=== PATIENT | male | born 1970 | race Caucasian/White ===

== ENCOUNTER 2017-11-25 19:52 | Inpatient (IN) | payer OTHER ==
[2017-11-25] MEDS: SOD CHLORIDE 0.9% 1,000 ML IV ×2 (20:32→22:18)
[2017-11-25] MEDS: ONDANSETRON 4 MG INJ IV ×3 (20:32→23:58)
[2017-11-25] MEDS: HYDROmorphONE 1 MG/ML SYG IV ×2 (20:32→22:18)
[2017-11-25] MEDS: LORAZEPAM 2 MG INJ IV (20:33)
[2017-11-25 20:44] LABS: ADD MAN DIFF? NO
[2017-11-25 20:47] LABS: WHITE BLOOD COUNT 20.4 10^3/ul (4.8-10.8)
[2017-11-25 20:47] LABS: ABNORMAL IP MESSAGE 1; BASOPHIL # 0.1 10^3/ul (0.0-0.1); BASOPHILS % 0.7 % (0.0-2.0); EOSINOPHILS # 0.3 10^3/ul (0.0-0.5); EOSINOPHILS % 1.6 % (0.0-7.0); HEMATOCRIT 48.1 % (42.0-52.0); HEMOGLOBIN 17.2 g/dl (14.0-18.0); LYMPHOCYTES # 3.5 10^3/ul (0.8-2.9); LYMPHOCYTES % 17.1 % (15.0-51.0); MEAN CORPUSCULAR HEMOGLOBIN 30.9 pg (29.0-33.0); MEAN CORPUSCULAR HGB CONC 35.8 g/dl (32.0-37.0); MEAN CORPUSCULAR VOLUME 86.4 fl (82.0-101.0); MEAN PLATELET VOLUME 11.6 fl (7.4-10.4); MONOCYTES % 9.9 % (0.0-11.0); NEUTROPHIL # 14.3 10^3/ul (1.6-7.5); PLATELET COUNT 341 10^3/UL (140-415); POSITIVE DIFF @See below; RED BLOOD COUNT 5.57 10^6/ul (4.70-6.10); RED CELL DISTRIBUTION WIDTH 12.4 % (11.5-14.5)
[2017-11-25 21:00] LABS: INR 0.97
[2017-11-25 21:01] LABS: PARTIAL THROMBOPLASTIN TIME 21.2 Sec (25.0-35.0)
[2017-11-25 21:03] LABS: ALANINE AMINOTRANSFERASE 216 IU/L (13-69); ALBUMIN 3.5 g/dl (3.3-4.9); ALBUMIN/GLOBULIN RATIO 1.29; ALKALINE PHOSPHATASE 130 IU/L (42-121); ANION GAP 15 (8-16); ASPARTATE AMINO TRANSFERASE 265 IU/L (15-46); BILIRUBIN,INDIRECT 0.7 mg/dl (0-1.1); BILIRUBIN,TOTAL 1.7 mg/dl (0.2-1.3); BLOOD UREA NITROGEN 17 mg/dl (7-20); CALCIUM 8.4 mg/dl (8.4-10.2); CARBON DIOXIDE 24 mmol/L (21-31); CHLORIDE 101 mmol/L (97-110); CREATININE 0.84 mg/dl (0.61-1.24); GLUCOSE 379 mg/dl (70-220); SODIUM 136 mmol/L (135-144); TOTAL PROTEIN 6.2 g/dl (6.1-8.1)
[2017-11-25 22:03] LABS: LIPASE 41442 U/L (23-300)
[2017-11-25] MEDS ORDERED: PIPER-TAZO 3.375 GM IV (PMX) 100 ML (22:14)
[2017-11-25] MEDS: PIPER-TAZO 3.375 GM IV (PMX) 100 ML IVPB (22:18)
[2017-11-25] MEDS ORDERED: ACETAMINOPHEN 325 MG TAB PO (22:30)
[2017-11-26] MEDS: LORAZEPAM 2 MG INJ IV (01:56)
[2017-11-26] MEDS: METOCLOPRAMIDE 10 MG INJ IV (01:57)
[2017-11-26] MEDS ORDERED: NACL 0.9% 3 ML SYG IV (03:30)
[2017-11-26] MEDS ORDERED: ALBUTEROL/IPRATROPIUM (NEB) 3 ML AMP HHN (03:30)
[2017-11-26] MEDS: DEXTROSE 5%-0.45% NACL 1,000 ML IV ×3 (04:15→23:44)
[2017-11-26] MEDS: INSULIN ASPART [NOVOLOG] 3 ML PEN SC ×6 (05:00→21:38)
[2017-11-26] MEDS: ONDANSETRON 4 MG INJ IV ×3 (05:32→21:34)
[2017-11-26 06:23] LABS: ADD MAN DIFF? NO
[2017-11-26 06:30] LABS: WHITE BLOOD COUNT 21.9 10^3/ul (4.8-10.8)
[2017-11-26 06:30] LABS: ABNORMAL IP MESSAGE 1; BASOPHILS % 0.2 % (0.0-2.0); HEMATOCRIT 43.6 % (42.0-52.0); HEMOGLOBIN 15.6 g/dl (14.0-18.0); LYMPHOCYTES # 0.5 10^3/ul (0.8-2.9); LYMPHOCYTES % 2.2 % (15.0-51.0); MEAN CORPUSCULAR HEMOGLOBIN 31.5 pg (29.0-33.0); MEAN CORPUSCULAR HGB CONC 35.8 g/dl (32.0-37.0); MEAN CORPUSCULAR VOLUME 88.1 fl (82.0-101.0); MEAN PLATELET VOLUME 11.8 fl (7.4-10.4); MONOCYTE # 0.9 10^3/ul (0.3-0.9); MONOCYTES % 4.2 % (0.0-11.0); NEUTROPHIL # 20.3 10^3/ul (1.6-7.5); NEUTROPHILS % 92.7 % (39.0-77.0); PLATELET COUNT 224 10^3/UL (140-415); POSITIVE DIFF @See below; RED BLOOD COUNT 4.95 10^6/ul (4.70-6.10)
[2017-11-26 06:54] LABS: CHOL/HDL RATIO 4.9 RATIO; CHOLESTEROL 173 mg/dl (100-200); HDL CHOLESTEROL 35 mg/dl (27-67); LDL CHOLESTEROL,CALCULATED 120 mg/dl; MAGNESIUM 1.7 mg/dl (1.7-2.5); TRIGLYCERIDES 92 mg/dl (0-149)
[2017-11-26 06:54] LABS: PHOSPHORUS 3.9 mg/dl (2.5-4.9)
[2017-11-26 07:21] LABS: HEMOGLOBIN A1C 8.4 % (0-5.9)
[2017-11-26] MEDS: HYDROmorphONE 0.5 MG/0.5 ML SYG IV ×4 (08:01→21:40)
[2017-11-26] MEDS: MEROPENEM 1 GM/50ML(PMX) 50 ML IVPB ×3 (08:52→23:42)
[2017-11-26] MEDS: FAMOTIDINE 20 MG INJ IV ×2 (08:53→21:35)
[2017-11-26] MEDS: INSULIN GLARGINE [LANtus] 3 ML PEN SC ×2 (08:56→14:34)
[2017-11-26] MEDS ORDERED: GLUCOSE GEL 15 GRAM TUBE PO ×2 (15:30)
[2017-11-26] MEDS ORDERED: GLUCOSE GEL 15 GRAM TUBE BUCCAL (15:30)
[2017-11-26] MEDS ORDERED: DEXTROSE 50% 50 ML SYRINGE IV ×2 (15:30)
[2017-11-26] MEDS ORDERED: GLUCAGON 1 MG INJ IM (15:30)
[2017-11-26] MEDS: metroNIDAZOLE 500 MG/NS (PMX) 100 ML IVPB ×2 (16:11→22:30)
[2017-11-26] MEDS: CIPROFLOXACIN 400MG/D5W 200 ML IVPB ×2 (17:12→21:29)
[2017-11-26] MEDS ORDERED: INSULIN ASPART [NOVOLOG] 3 ML PEN SC (17:55)
[2017-11-27] MEDS: LORAZEPAM 2 MG INJ IV (00:52)
[2017-11-27] MEDS: INSULIN ASPART [NOVOLOG] 3 ML PEN SC ×7 (01:03→23:48)
[2017-11-27] MEDS: ACCU-CHEK XX (01:05)
[2017-11-27] MEDS ORDERED: ACCU-CHEK XX (02:00)
[2017-11-27] MEDS: MEROPENEM 1 GM/50ML(PMX) 50 ML IVPB ×3 (05:29→22:54)
[2017-11-27] MEDS: metroNIDAZOLE 500 MG/NS (PMX) 100 ML IVPB ×3 (05:55→21:49)
[2017-11-27 06:27] LABS: ADD MAN DIFF? NO
[2017-11-27 06:31] LABS: WHITE BLOOD COUNT 26.1 10^3/ul (4.8-10.8)
[2017-11-27 06:31] LABS: ABNORMAL IP MESSAGE 1; BASOPHIL # 0.1 10^3/ul (0.0-0.1); BASOPHILS % 0.3 % (0.0-2.0); HEMATOCRIT 41.5 % (42.0-52.0); HEMOGLOBIN 14.4 g/dl (14.0-18.0); LYMPHOCYTES # 0.9 10^3/ul (0.8-2.9); LYMPHOCYTES % 3.5 % (15.0-51.0); MEAN CORPUSCULAR HGB CONC 34.7 g/dl (32.0-37.0); MEAN CORPUSCULAR VOLUME 89.2 fl (82.0-101.0); MEAN PLATELET VOLUME 11.5 fl (7.4-10.4); MONOCYTE # 2.7 10^3/ul (0.3-0.9); MONOCYTES % 10.3 % (0.0-11.0); NEUTROPHIL # 22.2 10^3/ul (1.6-7.5); NEUTROPHILS % 85.2 % (39.0-77.0); PLATELET COUNT 207 10^3/UL (140-415); POSITIVE DIFF @See below; RED BLOOD COUNT 4.65 10^6/ul (4.70-6.10)
[2017-11-27 07:04] LABS: ALANINE AMINOTRANSFERASE 114 IU/L (13-69); ALBUMIN 2.7 g/dl (3.3-4.9); ALKALINE PHOSPHATASE 82 IU/L (42-121); ASPARTATE AMINO TRANSFERASE 38 IU/L (15-46); BILIRUBIN,INDIRECT 0.7 mg/dl (0-1.1); BILIRUBIN,TOTAL 0.7 mg/dl (0.2-1.3); TOTAL PROTEIN 5.4 g/dl (6.1-8.1)
[2017-11-27 07:05] LABS: LIPASE 948 U/L (23-300)
[2017-11-27 07:12] LABS: ANION GAP 10 (8-16); BLOOD UREA NITROGEN 13 mg/dl (7-20); CALCIUM 7.4 mg/dl (8.4-10.2); CARBON DIOXIDE 26 mmol/L (21-31); CHLORIDE 103 mmol/L (97-110); CREATININE 0.71 mg/dl (0.61-1.24); GLUCOSE 247 mg/dl (70-220); PHOSPHORUS 1.7 mg/dl (2.5-4.9); POTASSIUM 3.4 mmol/L (3.5-5.1); SODIUM 136 mmol/L (135-144)
[2017-11-27] MEDS: HYDROmorphONE 0.5 MG/0.5 ML SYG IV ×4 (09:40→23:43)
[2017-11-27] MEDS: ONDANSETRON 4 MG INJ IV ×3 (09:40→21:49)
[2017-11-27] MEDS: FAMOTIDINE 20 MG INJ IV ×2 (09:43→20:47)
[2017-11-27] MEDS: CIPROFLOXACIN 400MG/D5W 200 ML IVPB ×2 (09:45→20:46)
[2017-11-27] MEDS: INSULIN GLARGINE [LANtus] 3 ML PEN SC (09:45)
[2017-11-27] MEDS: POTASSIUM CHLORIDE 50 ML IVPB ×2 (11:11→15:15)
[2017-11-27] MEDS: SOD CHLORIDE 0.9% 1,000 ML IV (11:12)
[2017-11-27] MEDS: MAGNESIUM SULFATE 2 GM/50 ML 50 ML IVPB (12:37)
[2017-11-27] MEDS: DEXTROSE 5%-0.45% NACL 1,000 ML IV (21:48)
[2017-11-28] MEDS: ACCU-CHEK XX (01:54)
[2017-11-28] MEDS: morphine 2 MG INJ IV (02:50)
[2017-11-28] MEDS: metroNIDAZOLE 500 MG/NS (PMX) 100 ML IVPB ×3 (05:22→21:55)
[2017-11-28] MEDS: INSULIN ASPART [NOVOLOG] 3 ML PEN SC ×7 (05:26→20:41)
[2017-11-28] MEDS: HYDROmorphONE 0.5 MG/0.5 ML SYG IV ×4 (05:31→23:07)
[2017-11-28 06:10] LABS: LIPASE 96 U/L (23-300)
[2017-11-28] MEDS: MEROPENEM 1 GM/50ML(PMX) 50 ML IVPB ×3 (06:40→23:05)
[2017-11-28] MEDS: CIPROFLOXACIN 400MG/D5W 200 ML IVPB ×2 (09:30→20:36)
[2017-11-28] MEDS: INSULIN GLARGINE [LANtus] 3 ML PEN SC (09:32)
[2017-11-28] MEDS: FAMOTIDINE 20 MG INJ IV ×2 (10:14→20:35)
[2017-11-28] MEDS: SOD CHLORIDE 0.9% 1,000 ML IV (12:57)
[2017-11-28] MEDS: ONDANSETRON 4 MG INJ IV ×2 (17:22→23:04)
[2017-11-28] MEDS: LORAZEPAM 2 MG INJ IV (20:49)
[2017-11-29] MEDS: ACCU-CHEK XX (01:33)
[2017-11-29] MEDS: LORAZEPAM 2 MG INJ IV (02:53)
[2017-11-29] MEDS: metroNIDAZOLE 500 MG/NS (PMX) 100 ML IVPB ×3 (05:30→22:40)
[2017-11-29 05:42] LABS: WHITE BLOOD COUNT 18.6 10^3/ul (4.8-10.8)
[2017-11-29 05:42] LABS: ABNORMAL IP MESSAGE 1; ADD MAN DIFF? NO; BASOPHIL # 0.1 10^3/ul (0.0-0.1); BASOPHILS % 0.3 % (0.0-2.0); EOSINOPHILS # 0.1 10^3/ul (0.0-0.5); EOSINOPHILS % 0.6 % (0.0-7.0); HEMATOCRIT 38.5 % (42.0-52.0); HEMOGLOBIN 13.4 g/dl (14.0-18.0); LYMPHOCYTES # 1.1 10^3/ul (0.8-2.9); LYMPHOCYTES % 5.9 % (15.0-51.0); MEAN CORPUSCULAR HEMOGLOBIN 30.9 pg (29.0-33.0); MEAN CORPUSCULAR HGB CONC 34.8 g/dl (32.0-37.0); MEAN CORPUSCULAR VOLUME 88.7 fl (82.0-101.0); MEAN PLATELET VOLUME 11.1 fl (7.4-10.4); MONOCYTE # 1.9 10^3/ul (0.3-0.9); MONOCYTES % 9.9 % (0.0-11.0); NEUTROPHIL # 15.4 10^3/ul (1.6-7.5); NEUTROPHILS % 82.7 % (39.0-77.0); PLATELET COUNT 216 10^3/UL (140-415); POSITIVE DIFF @See below; RED BLOOD COUNT 4.34 10^6/ul (4.70-6.10); RED CELL DISTRIBUTION WIDTH 12.4 % (11.5-14.5)
[2017-11-29] MEDS: MEROPENEM 1 GM/50ML(PMX) 50 ML IVPB (06:40)
[2017-11-29] MEDS: CIPROFLOXACIN 400MG/D5W 200 ML IVPB ×2 (09:08→20:53)
[2017-11-29] MEDS: INSULIN ASPART [NOVOLOG] 3 ML PEN SC ×7 (09:10→20:58)
[2017-11-29] MEDS: INSULIN GLARGINE [LANtus] 3 ML PEN SC (09:11)
[2017-11-29] MEDS: SOD CHLORIDE 0.9% 1,000 ML IV (09:11)
[2017-11-29] MEDS: ALPRAZOLAM 0.5 MG TAB PO (09:27)
[2017-11-29] MEDS ORDERED: HYDROCODONE/APAP (5/325) TAB PO (09:30)
[2017-11-29] MEDS: NA PHOSPHATE/BIPHOS 133 ML ENEMA PR (11:00)
[2017-11-29] MEDS: HYDROCODONE/APAP (5/325) TAB PO ×3 (12:03→21:09)
[2017-11-29] MEDS ORDERED: morphine LIQ (10 MG/5 ML) CUP PO (17:00)
[2017-11-29] MEDS: MAGNESIUM HYDROXIDE 30ML CUP PO (17:59)
[2017-11-29] MEDS: FAMOTIDINE 20 MG TAB PO (20:52)
[2017-11-29] MEDS: DOCUSATE SODIUM 100 MG CAP PO (20:52)
[2017-11-29] MEDS: ONDANSETRON 4 MG INJ IV (23:43)
[2017-11-30] MEDS: ACCU-CHEK XX (02:00)
[2017-11-30 05:08] LABS: ADD MAN DIFF? NO
[2017-11-30] MEDS: SOD CHLORIDE 0.9% 1,000 ML IV (05:08)
[2017-11-30 05:17] LABS: WHITE BLOOD COUNT 14.5 10^3/ul (4.8-10.8)
[2017-11-30 05:17] LABS: ABNORMAL IP MESSAGE 1; BASOPHIL # 0.1 10^3/ul (0.0-0.1); BASOPHILS % 0.4 % (0.0-2.0); EOSINOPHILS # 0.4 10^3/ul (0.0-0.5); EOSINOPHILS % 2.5 % (0.0-7.0); HEMATOCRIT 37.5 % (42.0-52.0); LYMPHOCYTES # 0.9 10^3/ul (0.8-2.9); LYMPHOCYTES % 6.5 % (15.0-51.0); MEAN CORPUSCULAR HEMOGLOBIN 30.7 pg (29.0-33.0); MEAN CORPUSCULAR HGB CONC 34.7 g/dl (32.0-37.0); MEAN CORPUSCULAR VOLUME 88.7 fl (82.0-101.0); MEAN PLATELET VOLUME 10.6 fl (7.4-10.4); MONOCYTE # 1.7 10^3/ul (0.3-0.9); MONOCYTES % 11.8 % (0.0-11.0); NEUTROPHIL # 11.4 10^3/ul (1.6-7.5); NEUTROPHILS % 78.1 % (39.0-77.0); PLATELET COUNT 244 10^3/UL (140-415); POSITIVE DIFF @See below; RED BLOOD COUNT 4.23 10^6/ul (4.70-6.10); RED CELL DISTRIBUTION WIDTH 12.1 % (11.5-14.5)
[2017-11-30] MEDS: metroNIDAZOLE 500 MG/NS (PMX) 100 ML IVPB ×2 (06:08→13:12)
[2017-11-30] MEDS: POLYETHYLENE GLYCOL 17 GM PACKET PO (06:12)
[2017-11-30] MEDS: INSULIN ASPART [NOVOLOG] 3 ML PEN SC ×4 (09:05→13:05)
[2017-11-30] MEDS: DOCUSATE SODIUM 100 MG CAP PO (09:07)
[2017-11-30] MEDS: CIPROFLOXACIN 400MG/D5W 200 ML IVPB (09:07)
[2017-11-30] MEDS: INSULIN GLARGINE [LANtus] 3 ML PEN SC (09:07)
[2017-11-30] MEDS: ONDANSETRON 4 MG INJ IV (09:21)
[2017-11-30] MEDS: HYDROCODONE/APAP (5/325) TAB PO ×2 (09:21→13:19)
[2017-11-30] MEDS: LACTULOSE 30ML CUP PO (14:32)
== END 2017-11-30 14:58 | disposition home or self-care (01) | DRG 440 ==
LOC: MS1 22:18 → E/R 19:52
DX: K85.10 Biliary acute pancreatitis without necrosis or infection (principal); K76.0 Fatty (change of) liver, not elsewhere classified; K80.50 Calculus of bile duct without cholangitis or cholecystitis without obstruction; E11.9 Type 2 diabetes mellitus without complications; E66.9 Obesity, unspecified; D72.829 Elevated white blood cell count, unspecified; R73.9 Hyperglycemia, unspecified; Z68.33 Body mass index [BMI] 33.0-33.9, adult; K59.00 Constipation, unspecified; F41.9 Anxiety disorder, unspecified; G47.00 Insomnia, unspecified
CPT/HCPCS: 36415; 74176; 74181; 76705; 80048; 80053; 80061; 80076; 82962; 83036; 83690; 83735; 84100; 85025; 85610; 85730; 87040; 87086; 96374; 96375; 96376; 99285-25

== ENCOUNTER 2018-02-19 00:36 | Emergency (ER) | payer OTHER ==
[2018-02-19] MEDS ORDERED: ONDANSETRON 4 MG INJ IV (04:30)
[2018-02-19] MEDS: DIPHTH/TET/ACEL PERTUSS (ADULT) 0.5 ML VIAL IM* (04:47)
[2018-02-19] MEDS: HYDROCODONE/APAP (5/325) TAB PO ×2 (04:47→06:21)
[2018-02-19] MEDS: ONDANSETRON (ODT) 4 MG TAB ODT (04:48)
[2018-02-19] MEDS: OXYMETAZOLINE 0.05% 15 ML NAS SPRAY NASAL (06:31)
== END 2018-02-19 06:40 | disposition home or self-care (01) ==
LOC: FTE 00:36
DX: S02.2XXA Fracture of nasal bones, initial encounter for closed fracture (principal); X99.0XXA Assault by sharp glass, initial encounter; Y92.9 Unspecified place or not applicable; Z23 Encounter for immunization; Z79.84 Long term (current) use of oral hypoglycemic drugs
CPT/HCPCS: 70486; 90471; 90715; 99284-25

== ENCOUNTER 2019-04-01 11:07 | Inpatient (IN) | payer OTHER ==
[2019-04-01 11:25] LABS: ADD MAN DIFF? NO
[2019-04-01 11:32] LABS: BASOPHIL # 0.1 10^3/ul (0.0-0.1); BASOPHILS % 0.8 % (0.0-2.0); EOSINOPHILS # 0.4 10^3/ul (0.0-0.5); EOSINOPHILS % 3.4 % (0.0-7.0); HEMATOCRIT 44.9 % (42.0-52.0); HEMOGLOBIN 15.8 g/dl (14.0-18.0); LYMPHOCYTES # 3.4 10^3/ul (0.8-2.9); LYMPHOCYTES % 30.4 % (15.0-51.0); MEAN CORPUSCULAR HEMOGLOBIN 31.1 pg (29.0-33.0); MEAN CORPUSCULAR HGB CONC 35.2 g/dl (32.0-37.0); MEAN CORPUSCULAR VOLUME 88.4 fl (82.0-101.0); MEAN PLATELET VOLUME 11.5 fl (7.4-10.4); MONOCYTE # 1.5 10^3/ul (0.3-0.9); MONOCYTES % 13.4 % (0.0-11.0); NEUTROPHIL # 5.8 10^3/ul (1.6-7.5); NEUTROPHILS % 51.7 % (39.0-77.0); PLATELET COUNT 275 10^3/UL (140-415); RED BLOOD COUNT 5.08 10^6/ul (4.70-6.10); RED CELL DISTRIBUTION WIDTH 12.2 % (11.5-14.5)
[2019-04-01 11:32] LABS: WHITE BLOOD COUNT 11.2 10^3/ul (4.8-10.8)
[2019-04-01] MEDS: KETOROLAC 15 MG INJ IV (11:48)
[2019-04-01 12:01] LABS: ALANINE AMINOTRANSFERASE 76 IU/L (13-69); ALBUMIN 3.6 g/dl (3.3-4.9); ALBUMIN/GLOBULIN RATIO 1.05; ALKALINE PHOSPHATASE 98 IU/L (42-121); ANION GAP 9 (5-13); ASPARTATE AMINO TRANSFERASE 57 IU/L (15-46); BILIRUBIN,INDIRECT 0.9 mg/dl (0-1.1); BILIRUBIN,TOTAL 0.9 mg/dl (0.2-1.3); BLOOD UREA NITROGEN 9 mg/dl (7-20); CALCIUM 8.7 mg/dl (8.4-10.2); CARBON DIOXIDE 26 mmol/L (21-31); CHLORIDE 104 mmol/L (97-110); CREATININE 0.71 mg/dl (0.61-1.24); Estimated GFR > 60 mL/min (>60); GLUCOSE 233 mg/dl (70-220); SODIUM 139 mmol/L (135-144)
[2019-04-01 12:12] LABS: B-TYPE NATRIURETIC PEPTIDE 162 PG/ML (0-125)
[2019-04-01 12:35] LABS: TROPONIN-I 0.681 ng/ml (0.000-0.120)
[2019-04-01] MEDS ORDERED: NITROGLYCERIN (SL) 0.4 MG TAB (12:38)
[2019-04-01] MEDS ORDERED: HEPARIN 25000 UNITS/250 ML 250 ML IV (12:38)
[2019-04-01] MEDS ORDERED: HEPARIN 1000 UNITS/ML 10 ML INJ ×2 (12:41→13:49)
[2019-04-01] MEDS: HEPARIN 25000 UNITS/250 ML 250 ML IV (12:47)
[2019-04-01] MEDS: NITROGLYCERIN (SL) 0.4 MG TAB SL ×3 (12:48→13:35)
[2019-04-01] MEDS: HEPARIN 1000 UNITS/ML 10 ML INJ IV (13:18)
[2019-04-01] MEDS: ATORVASTATIN 80 MG TAB PO ×2 (13:24→20:29)
[2019-04-01 13:34] LABS: INR 0.88; PARTIAL THROMBOPLASTIN TIME 22.8 Sec (23.0-35.0); PT RATIO 0.9
[2019-04-01] MEDS: ONDANSETRON 4 MG INJ IV (13:36)
[2019-04-01] MEDS: morphine 4 MG/ML VIAL IV (13:36)
[2019-04-01] MEDS ORDERED: MIDAZOLAM 1 MG/ML 2 ML INJ (13:49)
[2019-04-01] MEDS ORDERED: IODIXANOL LOCM 100 ML BTL (13:49)
[2019-04-01] MEDS ORDERED: FENTAnyl 50 MCG/ML VIAL (13:49)
[2019-04-01] MEDS ORDERED: LIDOCAINE 1% (MDV) 20 ML INJ (13:49)
[2019-04-01] MEDS ORDERED: NITROGLYCERIN (IC) 100 MCG/ML INJ ×2 (13:50→14:29)
[2019-04-01] MEDS ORDERED: VERAPAMIL 5 MG INJ ×2 (13:50→14:19)
[2019-04-01] MEDS ORDERED: NACL 0.9% 3 ML SYG IV (14:00)
[2019-04-01] MEDS ORDERED: ONDANSETRON 4 MG INJ IV (14:00)
[2019-04-01] MEDS ORDERED: ACETAMINOPHEN 325 MG TAB PO ×2 (14:00→15:30)
[2019-04-01] MEDS ORDERED: HYDROCODONE/APAP (5/325) TAB PO (14:00)
[2019-04-01] MEDS ORDERED: TICAGRELOR 90 MG TABLET (14:12)
[2019-04-01] MEDS ORDERED: DEXTROSE 50% 50 ML SYRINGE IV ×2 (14:30)
[2019-04-01] MEDS ORDERED: GLUCOSE GEL 15 GRAM TUBE BUCCAL (14:30)
[2019-04-01] MEDS ORDERED: GLUCOSE GEL 15 GRAM TUBE PO ×2 (14:30)
[2019-04-01] MEDS ORDERED: GLUCAGON 1 MG INJ IM (14:30)
[2019-04-01] MEDS ORDERED: morphine 2 MG INJ IV (15:30)
[2019-04-01] MEDS ORDERED: OXYCODONE/ACETAMINOPHEN (5/325) TAB PO ×2 (15:30)
[2019-04-01] MEDS: SOD CHLORIDE 0.9% 1,000 ML IV (16:07)
[2019-04-01] MEDS: BIVALIRUDIN 250 MG in SOD CHLORIDE 0.9% 500 ML IV (16:11)
[2019-04-01] MEDS: INSULIN ASPART [NOVOLOG] 3 ML PEN SC ×2 (17:35→20:44)
[2019-04-01 19:34] LABS: CREATINE KINASE 2784 IU/L (23-200)
[2019-04-01 19:39] LABS: CK INDEX 3.8
[2019-04-01] MEDS: TICAGRELOR 90 MG TABLET PO (20:43)
[2019-04-01] MEDS: DOCUSATE SODIUM 100 MG CAP PO (20:45)
[2019-04-02] MEDS: ACCU-CHEK XX (01:40)
[2019-04-02] MEDS: morphine 2 MG INJ IV (03:00)
[2019-04-02 05:49] LABS: ADD MAN DIFF? NO
[2019-04-02 06:15] LABS: ABNORMAL IP MESSAGE 1; BASOPHIL # 0.1 10^3/ul (0.0-0.1); BASOPHILS % 0.4 % (0.0-2.0); EOSINOPHILS # 0.2 10^3/ul (0.0-0.5); EOSINOPHILS % 1.2 % (0.0-7.0); HEMOGLOBIN 13.6 g/dl (14.0-18.0); LYMPHOCYTES # 1.2 10^3/ul (0.8-2.9); LYMPHOCYTES % 9.8 % (15.0-51.0); MEAN CORPUSCULAR HEMOGLOBIN 30.8 pg (29.0-33.0); MEAN CORPUSCULAR HGB CONC 34.9 g/dl (32.0-37.0); MEAN CORPUSCULAR VOLUME 88.4 fl (82.0-101.0); MEAN PLATELET VOLUME 12.1 fl (7.4-10.4); MONOCYTE # 1.6 10^3/ul (0.3-0.9); MONOCYTES % 12.5 % (0.0-11.0); NEUTROPHIL # 9.6 10^3/ul (1.6-7.5); NEUTROPHILS % 75.6 % (39.0-77.0); PLATELET COUNT 204 10^3/UL (140-415); POSITIVE DIFF @See below; RED BLOOD COUNT 4.41 10^6/ul (4.70-6.10); RED CELL DISTRIBUTION WIDTH 12.5 % (11.5-14.5)
[2019-04-02 06:15] LABS: WHITE BLOOD COUNT 12.7 10^3/ul (4.8-10.8)
[2019-04-02 06:22] LABS: HEMOGLOBIN A1C 8.5 % (0-5.9)
[2019-04-02 06:23] LABS: CREATINE KINASE 1268 IU/L (23-200)
[2019-04-02 06:31] LABS: CK INDEX 3.1
[2019-04-02 06:40] LABS: CHOL/HDL RATIO 7.1 RATIO; HDL CHOLESTEROL 25 mg/dl (27-67); LDL CHOLESTEROL,CALCULATED 123 mg/dl; TRIGLYCERIDES 150 mg/dl (0-149)
[2019-04-02 06:40] LABS: CHOLESTEROL 178 mg/dl (100-200)
[2019-04-02 06:45] LABS: ALANINE AMINOTRANSFERASE 97 IU/L (13-69); ALBUMIN/GLOBULIN RATIO 1.03; ALKALINE PHOSPHATASE 67 IU/L (42-121); ANION GAP 5 (5-13); ASPARTATE AMINO TRANSFERASE 328 IU/L (15-46); BILIRUBIN,INDIRECT 1.2 mg/dl (0-1.1); BILIRUBIN,TOTAL 1.2 mg/dl (0.2-1.3); BLOOD UREA NITROGEN 9 mg/dl (7-20); CARBON DIOXIDE 26 mmol/L (21-31); CHLORIDE 107 mmol/L (97-110); Estimated GFR > 60 mL/min (>60); GLUCOSE 194 mg/dl (70-220); POTASSIUM 4.3 mmol/L (3.5-5.1); SODIUM 138 mmol/L (135-144); TOTAL PROTEIN 5.9 g/dl (6.1-8.1)
[2019-04-02 06:53] LABS: B-TYPE NATRIURETIC PEPTIDE 1440 PG/ML (0-125)
[2019-04-02] MEDS: INSULIN ASPART [NOVOLOG] 3 ML PEN SC ×4 (08:34→20:32)
[2019-04-02] MEDS: TICAGRELOR 90 MG TABLET PO ×2 (08:51→20:33)
[2019-04-02] MEDS: DOCUSATE SODIUM 100 MG CAP PO ×2 (08:53→20:34)
[2019-04-02] MEDS: ASPIRIN (EC) 81 MG TAB PO (08:53)
[2019-04-02] MEDS: AMIODARONE 150MG/D5W BOLUS 100 ML IV (10:27)
[2019-04-02] MEDS: ENOXAPARIN 80 MG/0.8 ML SYG SC (10:36)
[2019-04-02] MEDS: AMIODARONE 900 MG in DEXTROSE 5% 482 ML IV (10:50)
[2019-04-02] MEDS: ATORVASTATIN 80 MG TAB PO (20:33)
[2019-04-02] MEDS: INSULIN GLARGINE [LANTus] (100 UNITS/ML) SYG SC (20:33)
[2019-04-02] MEDS: MELATONIN 5 MG TABLET PO (20:56)
[2019-04-02] MEDS ORDERED: MELATONIN 5 MG TABLET PO (21:00)
[2019-04-03] MEDS: ACCU-CHEK XX (02:00)
[2019-04-03 05:56] LABS: ADD MAN DIFF? NO
[2019-04-03 06:06] LABS: WHITE BLOOD COUNT 11.4 10^3/ul (4.8-10.8)
[2019-04-03 06:06] LABS: ABNORMAL IP MESSAGE 1; BASOPHIL # 0.1 10^3/ul (0.0-0.1); BASOPHILS % 0.6 % (0.0-2.0); EOSINOPHILS # 0.3 10^3/ul (0.0-0.5); EOSINOPHILS % 2.7 % (0.0-7.0); HEMATOCRIT 39.3 % (42.0-52.0); HEMOGLOBIN 13.6 g/dl (14.0-18.0); LYMPHOCYTES # 1.5 10^3/ul (0.8-2.9); LYMPHOCYTES % 13.1 % (15.0-51.0); MEAN CORPUSCULAR HEMOGLOBIN 31.3 pg (29.0-33.0); MEAN CORPUSCULAR HGB CONC 34.6 g/dl (32.0-37.0); MEAN CORPUSCULAR VOLUME 90.6 fl (82.0-101.0); MEAN PLATELET VOLUME 11.5 fl (7.4-10.4); MONOCYTE # 1.7 10^3/ul (0.3-0.9); MONOCYTES % 15.3 % (0.0-11.0); NEUTROPHIL # 7.8 10^3/ul (1.6-7.5); NEUTROPHILS % 67.9 % (39.0-77.0); PLATELET COUNT 217 10^3/UL (140-415); POSITIVE DIFF @See below; RED BLOOD COUNT 4.34 10^6/ul (4.70-6.10); RED CELL DISTRIBUTION WIDTH 12.2 % (11.5-14.5)
[2019-04-03 06:34] LABS: ANION GAP 3 (5-13); BLOOD UREA NITROGEN 11 mg/dl (7-20); CALCIUM 8.6 mg/dl (8.4-10.2); CARBON DIOXIDE 29 mmol/L (21-31); CHLORIDE 105 mmol/L (97-110); CREATININE 0.87 mg/dl (0.61-1.24); Estimated GFR > 60 mL/min (>60); GLUCOSE 174 mg/dl (70-220); MAGNESIUM 1.9 mg/dl (1.7-2.5); PHOSPHORUS 4.4 mg/dl (2.5-4.9); POTASSIUM 4.3 mmol/L (3.5-5.1); SODIUM 137 mmol/L (135-144)
[2019-04-03] MEDS ORDERED: MIDAZOLAM 1 MG/ML 2 ML INJ (07:21)
[2019-04-03] MEDS ORDERED: NITROGLYCERIN (IC) 100 MCG/ML INJ (07:21)
[2019-04-03] MEDS ORDERED: LIDOCAINE 1% (MDV) 20 ML INJ (07:21)
[2019-04-03] MEDS ORDERED: IODIXANOL LOCM 100 ML BTL ×2 (07:21→08:27)
[2019-04-03] MEDS ORDERED: FENTAnyl 50 MCG/ML VIAL (07:21)
[2019-04-03] MEDS ORDERED: IODIXANOL LOCM 50 ML BTL (07:21)
[2019-04-03] MEDS ORDERED: VERAPAMIL 5 MG INJ (07:23)
[2019-04-03] MEDS ORDERED: TICAGRELOR 90 MG TABLET (07:27)
[2019-04-03] MEDS ORDERED: ASPIRIN 81 MG TAB (07:27)
[2019-04-03] MEDS: INSULIN ASPART [NOVOLOG] 3 ML PEN SC ×4 (07:35→20:31)
[2019-04-03] MEDS ORDERED: BIVALIRUDIN 250MG /NS 50 ML 100 ML IVPB (08:27)
[2019-04-03] MEDS: TICAGRELOR 90 MG TABLET PO ×2 (09:00→20:31)
[2019-04-03] MEDS: ASPIRIN (EC) 81 MG TAB PO (09:00)
[2019-04-03] MEDS: SOD CHLORIDE 0.9% 1,000 ML IV (09:33)
[2019-04-03] MEDS: DOCUSATE SODIUM 100 MG CAP PO ×2 (09:45→20:14)
[2019-04-03] MEDS: metFORMIN 500 MG TAB PO ×2 (11:30→17:35)
[2019-04-03] MEDS: ONDANSETRON 4 MG INJ IV (12:37)
[2019-04-03] MEDS: AMIODARONE 150MG/D5W BOLUS 100 ML IV (18:22)
[2019-04-03] MEDS: AMIODARONE 900 MG in DEXTROSE 5% 482 ML IV (18:43)
[2019-04-03] MEDS: ATORVASTATIN 80 MG TAB PO (20:14)
[2019-04-03] MEDS: MELATONIN 5 MG TABLET PO (23:58)
[2019-04-04] MEDS: ACCU-CHEK XX (03:40)
[2019-04-04 05:30] LABS: ADD MAN DIFF? NO
[2019-04-04 05:33] LABS: ABNORMAL IP MESSAGE 1; BASOPHIL # 0.1 10^3/ul (0.0-0.1); BASOPHILS % 0.6 % (0.0-2.0); EOSINOPHILS # 0.4 10^3/ul (0.0-0.5); EOSINOPHILS % 2.8 % (0.0-7.0); HEMATOCRIT 38.3 % (42.0-52.0); HEMOGLOBIN 13.3 g/dl (14.0-18.0); LYMPHOCYTES # 1.3 10^3/ul (0.8-2.9); LYMPHOCYTES % 9.9 % (15.0-51.0); MEAN CORPUSCULAR HEMOGLOBIN 31.1 pg (29.0-33.0); MEAN CORPUSCULAR HGB CONC 34.7 g/dl (32.0-37.0); MEAN CORPUSCULAR VOLUME 89.5 fl (82.0-101.0); MEAN PLATELET VOLUME 11.7 fl (7.4-10.4); MONOCYTE # 1.8 10^3/ul (0.3-0.9); MONOCYTES % 13.1 % (0.0-11.0); NEUTROPHIL # 9.9 10^3/ul (1.6-7.5); NEUTROPHILS % 73.2 % (39.0-77.0); PLATELET COUNT 221 10^3/UL (140-415); POSITIVE DIFF @See below; RED BLOOD COUNT 4.28 10^6/ul (4.70-6.10); RED CELL DISTRIBUTION WIDTH 12.1 % (11.5-14.5)
[2019-04-04 05:33] LABS: WHITE BLOOD COUNT 13.5 10^3/ul (4.8-10.8)
[2019-04-04 06:04] LABS: CREATINE KINASE 172 IU/L (23-200)
[2019-04-04 06:17] LABS: CK INDEX 1.3; CK-MB 2.27 ng/ml (0.0-2.4)
[2019-04-04 06:38] LABS: ALANINE AMINOTRANSFERASE 56 IU/L (13-69); ALBUMIN/GLOBULIN RATIO 1.07; ALKALINE PHOSPHATASE 79 IU/L (42-121); ANION GAP 7 (5-13); ASPARTATE AMINO TRANSFERASE 56 IU/L (15-46); BILIRUBIN,INDIRECT 1.4 mg/dl (0-1.1); BILIRUBIN,TOTAL 1.4 mg/dl (0.2-1.3); BLOOD UREA NITROGEN 14 mg/dl (7-20); CALCIUM 8.5 mg/dl (8.4-10.2); CARBON DIOXIDE 28 mmol/L (21-31); CHLORIDE 104 mmol/L (97-110); CREATININE 0.79 mg/dl (0.61-1.24); Estimated GFR > 60 mL/min (>60); GLUCOSE 194 mg/dl (70-220); MAGNESIUM 1.8 mg/dl (1.7-2.5); POTASSIUM 4.4 mmol/L (3.5-5.1); SODIUM 139 mmol/L (135-144); TOTAL PROTEIN 5.8 g/dl (6.1-8.1)
[2019-04-04] MEDS: ASPIRIN (EC) 81 MG TAB PO (08:28)
[2019-04-04] MEDS: metFORMIN 500 MG TAB PO ×2 (08:28→18:34)
[2019-04-04] MEDS: INSULIN ASPART [NOVOLOG] 3 ML PEN SC ×4 (08:53→21:00)
[2019-04-04] MEDS: DOCUSATE SODIUM 100 MG CAP PO ×2 (08:55→13:20)
[2019-04-04] MEDS: TICAGRELOR 90 MG TABLET PO ×2 (09:00→22:28)
[2019-04-04] MEDS: LISINOPRIL 5 MG TAB PO (18:34)
[2019-04-04] MEDS: ATORVASTATIN 80 MG TAB PO (21:59)
[2019-04-04] MEDS: AMIODARONE 200 MG TAB PO (21:59)
[2019-04-04] MEDS: ONDANSETRON 4 MG INJ IV (22:11)
[2019-04-04] MEDS: MAGNESIUM SULFATE 3 GM in DEXTROSE 5% 100 ML IVPB (22:52)
[2019-04-05] MEDS: AL HYDROX/MG HYDROX/SIMETH 30 ML CUP PO (00:14)
[2019-04-05] MEDS: METOCLOPRAMIDE 10 MG INJ IV (00:14)
[2019-04-05] MEDS: MELATONIN 5 MG TABLET PO (00:14)
[2019-04-05] MEDS: INSULIN ASPART [NOVOLOG] 3 ML PEN SC ×4 (08:14→21:22)
[2019-04-05] MEDS: LISINOPRIL 5 MG TAB PO (08:15)
[2019-04-05] MEDS: AMIODARONE 200 MG TAB PO ×2 (08:15→21:04)
[2019-04-05] MEDS: ASPIRIN (EC) 81 MG TAB PO (08:15)
[2019-04-05] MEDS: TICAGRELOR 90 MG TABLET PO ×2 (08:17→21:22)
[2019-04-05] MEDS: DOCUSATE SODIUM 100 MG CAP PO ×2 (08:20→21:00)
[2019-04-05] MEDS: ATORVASTATIN 80 MG TAB PO (21:04)
[2019-04-06] MEDS: MELATONIN 5 MG TABLET PO (00:07)
[2019-04-06 06:44] LABS: ADD MAN DIFF? NO
[2019-04-06 06:47] LABS: WHITE BLOOD COUNT 13.4 10^3/ul (4.8-10.8)
[2019-04-06 06:47] LABS: ABNORMAL IP MESSAGE 1; BASOPHIL # 0.1 10^3/ul (0.0-0.1); BASOPHILS % 0.5 % (0.0-2.0); EOSINOPHILS # 0.4 10^3/ul (0.0-0.5); EOSINOPHILS % 3.3 % (0.0-7.0); HEMATOCRIT 35.7 % (42.0-52.0); HEMOGLOBIN 12.2 g/dl (14.0-18.0); LYMPHOCYTES # 1.4 10^3/ul (0.8-2.9); LYMPHOCYTES % 10.2 % (15.0-51.0); MEAN CORPUSCULAR HEMOGLOBIN 30.6 pg (29.0-33.0); MEAN CORPUSCULAR HGB CONC 34.2 g/dl (32.0-37.0); MEAN CORPUSCULAR VOLUME 89.5 fl (82.0-101.0); MEAN PLATELET VOLUME 11.7 fl (7.4-10.4); MONOCYTES % 14.6 % (0.0-11.0); NEUTROPHIL # 9.5 10^3/ul (1.6-7.5); NEUTROPHILS % 70.7 % (39.0-77.0); PLATELET COUNT 261 10^3/UL (140-415); POSITIVE DIFF @See below; RED BLOOD COUNT 3.99 10^6/ul (4.70-6.10); RED CELL DISTRIBUTION WIDTH 12.3 % (11.5-14.5)
[2019-04-06 07:09] LABS: ANION GAP 7 (5-13); BLOOD UREA NITROGEN 18 mg/dl (7-20); CALCIUM 7.8 mg/dl (8.4-10.2); CARBON DIOXIDE 27 mmol/L (21-31); CHLORIDE 102 mmol/L (97-110); Estimated GFR > 60 mL/min (>60); GLUCOSE 119 mg/dl (70-220); POTASSIUM 4.3 mmol/L (3.5-5.1); SODIUM 136 mmol/L (135-144)
[2019-04-06] MEDS: INSULIN ASPART [NOVOLOG] 3 ML PEN SC ×3 (07:55→17:21)
[2019-04-06] MEDS: ASPIRIN (EC) 81 MG TAB PO (08:23)
[2019-04-06] MEDS: AMIODARONE 200 MG TAB PO (08:23)
[2019-04-06] MEDS: LISINOPRIL 5 MG TAB PO (08:25)
[2019-04-06] MEDS: TICAGRELOR 90 MG TABLET PO (08:28)
[2019-04-06] MEDS: DOCUSATE SODIUM 100 MG CAP PO (08:29)
== END 2019-04-06 17:36 | disposition home or self-care (01) | DRG 247 ==
LOC: TEL 04-04 05:40 → E/R 11:07 → ICU 13:03
PROC: 027034Z Dilation of Coronary Artery, One Artery with Drug-eluting Intraluminal Device, Percutaneous Approach (ICD-10-PCS; principal; 2019-04-01 13:56)
PROC: 02C03ZZ Extirpation of Matter from Coronary Artery, One Artery, Percutaneous Approach (ICD-10-PCS; 2019-04-01 13:56)
PROC: 027034Z Dilation of Coronary Artery, One Artery with Drug-eluting Intraluminal Device, Percutaneous Approach (ICD-10-PCS; 2019-04-01 13:56)
PROC: 4A023N7 Measurement of Cardiac Sampling and Pressure, Left Heart, Percutaneous Approach (ICD-10-PCS; 2019-04-01 13:56)
PROC: B211YZZ Fluoroscopy of Multiple Coronary Arteries using Other Contrast (ICD-10-PCS; 2019-04-01 13:56)
PROC: 3E0 Administration, Physiological Systems and Anatomical Regions, Introduction (ICD-10-PCS; 2019-04-01 13:56)
PROC: 3E073GC Introduction of Other Therapeutic Substance into Coronary Artery, Percutaneous Approach (ICD-10-PCS; 2019-04-01 13:56)
PROC: B211YZZ Fluoroscopy of Multiple Coronary Arteries using Other Contrast (ICD-10-PCS; 2019-04-01 13:56)
DX: I21.09 ST elevation (STEMI) myocardial infarction involving other coronary artery of anterior wall (principal); I25.10 Atherosclerotic heart disease of native coronary artery without angina pectoris; I48.0 Paroxysmal atrial fibrillation; I25.5 Ischemic cardiomyopathy; E11.9 Type 2 diabetes mellitus without complications; E78.5 Hyperlipidemia, unspecified; F41.9 Anxiety disorder, unspecified; Z79.84 Long term (current) use of oral hypoglycemic drugs
CPT/HCPCS: 71045; 80048; 80053; 80061; 82550; 82553; 82962; 83036; 83735; 83880; 84100; 84439; 84443; 84484; 85025; 85610; 85730; 87081; 93005; 93306; 93458; 96374; 97161; 99285-25; J0583

== ENCOUNTER 2019-04-24 01:07 | Observation (INO) | payer OTHER ==
[2019-04-24] MEDS: ASPIRIN 81 MG TAB PO (01:52)
[2019-04-24 02:07] LABS: ADD MAN DIFF? NO; BASOPHIL # 0.1 10^3/ul (0.0-0.1); BASOPHILS % 0.7 % (0.0-2.0); EOSINOPHILS # 0.3 10^3/ul (0.0-0.5); EOSINOPHILS % 2.8 % (0.0-7.0); HEMATOCRIT 40.3 % (42.0-52.0); HEMOGLOBIN 14.2 g/dl (14.0-18.0); LYMPHOCYTES # 1.4 10^3/ul (0.8-2.9); LYMPHOCYTES % 12.3 % (15.0-51.0); MEAN CORPUSCULAR HEMOGLOBIN 30.9 pg (29.0-33.0); MEAN CORPUSCULAR HGB CONC 35.2 g/dl (32.0-37.0); MEAN CORPUSCULAR VOLUME 87.6 fl (82.0-101.0); MEAN PLATELET VOLUME 11.7 fl (7.4-10.4); MONOCYTE # 1.3 10^3/ul (0.3-0.9); MONOCYTES % 11.4 % (0.0-11.0); NEUTROPHIL # 8.1 10^3/ul (1.6-7.5); NEUTROPHILS % 72.4 % (39.0-77.0); PLATELET COUNT 325 10^3/UL (140-415); RED CELL DISTRIBUTION WIDTH 13.2 % (11.5-14.5)
[2019-04-24 02:07] LABS: WHITE BLOOD COUNT 11.2 10^3/ul (4.8-10.8)
[2019-04-24 02:23] LABS: ANION GAP 13 (5-13); BLOOD UREA NITROGEN 13 mg/dl (7-20); CALCIUM 8.9 mg/dl (8.4-10.2); CARBON DIOXIDE 22 mmol/L (21-31); CHLORIDE 106 mmol/L (97-110); CREATININE 0.86 mg/dl (0.61-1.24); Estimated GFR > 60 mL/min (>60); GLUCOSE 86 mg/dl (70-220); POTASSIUM 4.3 mmol/L (3.5-5.1); SODIUM 141 mmol/L (135-144)
[2019-04-24 02:35] LABS: TROPONIN-I < 0.012 ng/ml (0.000-0.120)
[2019-04-24] MEDS ORDERED: ACETAMINOPHEN 325 MG TAB PO (05:00)
[2019-04-24] MEDS ORDERED: ALBUTEROL/IPRATROPIUM (NEB) 3 ML AMP HHN (07:00)
[2019-04-24] MEDS ORDERED: NITROGLYCERIN (SL) 0.4 MG TAB SL (07:00)
[2019-04-24] MEDS ORDERED: ONDANSETRON 4 MG INJ IV (07:00)
[2019-04-24] MEDS ORDERED: NACL 0.9% 3 ML SYG IV (07:00)
[2019-04-24] MEDS: ONDANSETRON 4 MG INJ IV (07:23)
[2019-04-24] MEDS: DEXTROSE 5%-0.45% NACL 1,000 ML IV ×2 (07:30→20:05)
[2019-04-24 08:06] LABS: CREATINE KINASE 65 IU/L (23-200)
[2019-04-24 08:16] LABS: CK INDEX 1.6; CK-MB 1.06 ng/ml (0.0-2.4); TROPONIN-I 0.025 ng/ml (0.000-0.120)
[2019-04-24] MEDS: AMIODARONE 200 MG TAB PO ×3 (09:29→20:06)
[2019-04-24] MEDS: LISINOPRIL 5 MG TAB PO ×2 (09:30→12:01)
[2019-04-24] MEDS: TICAGRELOR 90 MG TABLET PO ×2 (12:00→20:19)
[2019-04-24] MEDS: ASPIRIN (EC) 81 MG TAB PO (12:01)
[2019-04-24 17:58] LABS: CREATINE KINASE 57 IU/L (23-200)
[2019-04-24 18:11] LABS: CK INDEX 1.8; CK-MB 1.02 ng/ml (0.0-2.4); TROPONIN-I < 0.012 ng/ml (0.000-0.120)
[2019-04-24] MEDS: ATORVASTATIN 80 MG TAB PO (20:05)
[2019-04-24] MEDS ORDERED: DEXTROSE 50% 50 ML SYRINGE IV ×2 (22:00)
[2019-04-24] MEDS ORDERED: GLUCAGON 1 MG INJ IM (22:00)
[2019-04-24] MEDS ORDERED: GLUCOSE GEL 15 GRAM TUBE BUCCAL (22:00)
[2019-04-24] MEDS ORDERED: GLUCOSE GEL 15 GRAM TUBE PO ×2 (22:00)
[2019-04-24] MEDS: MELATONIN 5 MG TABLET PO (22:35)
[2019-04-24] MEDS: INSULIN ASPART [NOVOLOG] 3 ML PEN SC (23:04)
[2019-04-25] MEDS: ACCU-CHEK XX (02:32)
[2019-04-25 06:39] LABS: ADD MAN DIFF? NO
[2019-04-25 06:44] LABS: BASOPHIL # 0.1 10^3/ul (0.0-0.1); BASOPHILS % 1.1 % (0.0-2.0); EOSINOPHILS # 0.3 10^3/ul (0.0-0.5); EOSINOPHILS % 3.8 % (0.0-7.0); HEMATOCRIT 37.9 % (42.0-52.0); HEMOGLOBIN 12.9 g/dl (14.0-18.0); LYMPHOCYTES # 1.4 10^3/ul (0.8-2.9); LYMPHOCYTES % 16.4 % (15.0-51.0); MEAN CORPUSCULAR HEMOGLOBIN 30.2 pg (29.0-33.0); MEAN CORPUSCULAR VOLUME 88.8 fl (82.0-101.0); MEAN PLATELET VOLUME 11.9 fl (7.4-10.4); MONOCYTE # 1.2 10^3/ul (0.3-0.9); MONOCYTES % 14.2 % (0.0-11.0); NEUTROPHIL # 5.4 10^3/ul (1.6-7.5); NEUTROPHILS % 64.1 % (39.0-77.0); PLATELET COUNT 254 10^3/UL (140-415); RED BLOOD COUNT 4.27 10^6/ul (4.70-6.10); RED CELL DISTRIBUTION WIDTH 13.5 % (11.5-14.5)
[2019-04-25 06:44] LABS: WHITE BLOOD COUNT 8.5 10^3/ul (4.8-10.8)
[2019-04-25 07:11] LABS: ALANINE AMINOTRANSFERASE 40 IU/L (13-69); ALBUMIN 3.6 g/dl (3.3-4.9); ALBUMIN/GLOBULIN RATIO 1.09; ALKALINE PHOSPHATASE 92 IU/L (42-121); ANION GAP 8 (5-13); ASPARTATE AMINO TRANSFERASE 28 IU/L (15-46); BLOOD UREA NITROGEN 12 mg/dl (7-20); CALCIUM 8.5 mg/dl (8.4-10.2); CARBON DIOXIDE 28 mmol/L (21-31); CHLORIDE 107 mmol/L (97-110); CREATININE 0.97 mg/dl (0.61-1.24); Estimated GFR > 60 mL/min (>60); GLUCOSE 107 mg/dl (70-220); POTASSIUM 4.8 mmol/L (3.5-5.1); SODIUM 143 mmol/L (135-144); TOTAL PROTEIN 6.9 g/dl (6.1-8.1)
[2019-04-25] MEDS: INSULIN ASPART [NOVOLOG] 3 ML PEN SC ×4 (07:55→20:12)
[2019-04-25] MEDS: TICAGRELOR 90 MG TABLET PO ×2 (09:51→20:08)
[2019-04-25] MEDS: LISINOPRIL 5 MG TAB PO (09:56)
[2019-04-25] MEDS: ASPIRIN (EC) 81 MG TAB PO (09:56)
[2019-04-25] MEDS: AMIODARONE 200 MG TAB PO ×2 (09:56→20:03)
[2019-04-25] MEDS: DEXTROSE 5%-0.45% NACL 1,000 ML IV (10:42)
[2019-04-25] MEDS: ACETAMINOPHEN 325 MG TAB PO (10:48)
[2019-04-25] MEDS: ATORVASTATIN 80 MG TAB PO (20:03)
[2019-04-26] MEDS: MELATONIN 5 MG TABLET PO (00:33)
[2019-04-26] MEDS: ACCU-CHEK XX (01:59)
[2019-04-26] MEDS: MAGNESIUM HYDROXIDE 30ML CUP PO (05:41)
[2019-04-26] MEDS: INSULIN ASPART [NOVOLOG] 3 ML PEN SC ×3 (07:55→16:56)
[2019-04-26] MEDS: LISINOPRIL 5 MG TAB PO (08:13)
[2019-04-26] MEDS: ASPIRIN (EC) 81 MG TAB PO (08:13)
[2019-04-26] MEDS: TICAGRELOR 90 MG TABLET PO (08:19)
[2019-04-26] MEDS: AMIODARONE 200 MG TAB PO (08:47)
== END 2019-04-26 17:38 | disposition home or self-care (01) ==
LOC: E/R 01:07 → TEL 04-25 23:42
DX: R07.9 Chest pain, unspecified (principal); R20.0 Anesthesia of skin; I25.10 Atherosclerotic heart disease of native coronary artery without angina pectoris; Z95.5 Presence of coronary angioplasty implant and graft; E11.9 Type 2 diabetes mellitus without complications; E78.5 Hyperlipidemia, unspecified; I25.2 Old myocardial infarction; Z79.82 Long term (current) use of aspirin; Z79.84 Long term (current) use of oral hypoglycemic drugs
CPT/HCPCS: 36415; 70450; 70553; 71045; 80048; 80053; 82550; 82553; 82962; 84484; 85025; 87081; 93005; 99217; 99285-25; G0378

== ENCOUNTER 2019-05-03 17:30 | Observation (INO) | payer OTHER ==
[2019-05-03 18:20] LABS: ADD MAN DIFF? NO
[2019-05-03 18:23] LABS: WHITE BLOOD COUNT 11.3 10^3/ul (4.8-10.8)
[2019-05-03 18:23] LABS: BASOPHIL # 0.1 10^3/ul (0.0-0.1); BASOPHILS % 0.7 % (0.0-2.0); EOSINOPHILS # 0.2 10^3/ul (0.0-0.5); HEMATOCRIT 42.4 % (42.0-52.0); HEMOGLOBIN 14.8 g/dl (14.0-18.0); LYMPHOCYTES # 1.3 10^3/ul (0.8-2.9); LYMPHOCYTES % 11.1 % (15.0-51.0); MEAN CORPUSCULAR HGB CONC 34.9 g/dl (32.0-37.0); MEAN CORPUSCULAR VOLUME 88.7 fl (82.0-101.0); MEAN PLATELET VOLUME 11.8 fl (7.4-10.4); MONOCYTE # 1.4 10^3/ul (0.3-0.9); MONOCYTES % 12.6 % (0.0-11.0); NEUTROPHIL # 8.3 10^3/ul (1.6-7.5); NEUTROPHILS % 73.4 % (39.0-77.0); PLATELET COUNT 265 10^3/UL (140-415); RED BLOOD COUNT 4.78 10^6/ul (4.70-6.10); RED CELL DISTRIBUTION WIDTH 13.4 % (11.5-14.5)
[2019-05-03] MEDS: DEXTROSE 5%-0.9% NACL 1,000 ML IV (18:30)
[2019-05-03 18:47] LABS: ALANINE AMINOTRANSFERASE 65 IU/L (13-69); ALBUMIN 4.5 g/dl (3.3-4.9); ALBUMIN/GLOBULIN RATIO 1.09; ALKALINE PHOSPHATASE 128 IU/L (42-121); ANION GAP 13 (5-13); ASPARTATE AMINO TRANSFERASE 42 IU/L (15-46); BILIRUBIN,INDIRECT 1.2 mg/dl (0-1.1); BILIRUBIN,TOTAL 1.2 mg/dl (0.2-1.3); BLOOD UREA NITROGEN 16 mg/dl (7-20); CALCIUM 9.3 mg/dl (8.4-10.2); CARBON DIOXIDE 23 mmol/L (21-31); CHLORIDE 104 mmol/L (97-110); CREATININE 0.96 mg/dl (0.61-1.24); Estimated GFR > 60 mL/min (>60); GLUCOSE 80 mg/dl (70-220); LIPASE 48 U/L (23-300); POTASSIUM 4.4 mmol/L (3.5-5.1); SODIUM 140 mmol/L (135-144); TOTAL PROTEIN 8.6 g/dl (6.1-8.1)
[2019-05-03] MEDS ORDERED: NACL 0.9% 3 ML SYG IV (22:00)
[2019-05-03] MEDS ORDERED: ONDANSETRON 4 MG INJ IV ×2 (22:00)
[2019-05-03] MEDS ORDERED: DOCUSATE SODIUM 100 MG CAP PO (22:00)
[2019-05-03] MEDS ORDERED: ACETAMINOPHEN 325 MG TAB PO ×2 (22:00)
[2019-05-03] MEDS ORDERED: BISACODYL (EC) 5 MG TAB PO (22:00)
[2019-05-03] MEDS ORDERED: GLUCOSE GEL 15 GRAM TUBE BUCCAL (22:30)
[2019-05-03] MEDS ORDERED: GLUCOSE GEL 15 GRAM TUBE PO ×2 (22:30)
[2019-05-03] MEDS ORDERED: DEXTROSE 50% 50 ML SYRINGE IV ×2 (22:30)
[2019-05-03] MEDS ORDERED: GLUCAGON 1 MG INJ IM (22:30)
[2019-05-04] MEDS: ACCU-CHEK XX (02:05)
[2019-05-04] MEDS: MELATONIN 5 MG TABLET PO (02:07)
[2019-05-04] MEDS: INSULIN ASPART [NOVOLOG] 3 ML PEN SC ×3 (07:46→17:24)
[2019-05-04] MEDS: ASPIRIN (EC) 81 MG TAB PO (08:23)
[2019-05-04] MEDS: CLOPIDOGREL 75 MG TAB PO ×2 (08:23→17:38)
[2019-05-04] MEDS: AMIODARONE 200 MG TAB PO (08:24)
[2019-05-04] MEDS: LISINOPRIL 5 MG TAB PO (08:25)
[2019-05-04] MEDS: DOCUSATE SODIUM 100 MG CAP PO (08:26)
[2019-05-04 08:28] LABS: ADD MAN DIFF? NO
[2019-05-04 08:38] LABS: BASOPHIL # 0.1 10^3/ul (0.0-0.1); BASOPHILS % 0.8 % (0.0-2.0); EOSINOPHILS # 0.3 10^3/ul (0.0-0.5); EOSINOPHILS % 3.6 % (0.0-7.0); HEMATOCRIT 37.7 % (42.0-52.0); HEMOGLOBIN 13.1 g/dl (14.0-18.0); LYMPHOCYTES # 1.5 10^3/ul (0.8-2.9); LYMPHOCYTES % 16.5 % (15.0-51.0); MEAN CORPUSCULAR HEMOGLOBIN 30.8 pg (29.0-33.0); MEAN CORPUSCULAR HGB CONC 34.7 g/dl (32.0-37.0); MEAN CORPUSCULAR VOLUME 88.7 fl (82.0-101.0); MEAN PLATELET VOLUME 12.1 fl (7.4-10.4); MONOCYTE # 1.3 10^3/ul (0.3-0.9); MONOCYTES % 14.7 % (0.0-11.0); NEUTROPHIL # 5.7 10^3/ul (1.6-7.5); NEUTROPHILS % 64.2 % (39.0-77.0); PLATELET COUNT 207 10^3/UL (140-415); RED BLOOD COUNT 4.25 10^6/ul (4.70-6.10); RED CELL DISTRIBUTION WIDTH 13.3 % (11.5-14.5)
[2019-05-04 08:38] LABS: WHITE BLOOD COUNT 8.9 10^3/ul (4.8-10.8)
[2019-05-04 09:00] LABS: ALANINE AMINOTRANSFERASE 58 IU/L (13-69); ALBUMIN 3.9 g/dl (3.3-4.9); ALBUMIN/GLOBULIN RATIO 1.14; ALKALINE PHOSPHATASE 95 IU/L (42-121); ANION GAP 9 (5-13); ASPARTATE AMINO TRANSFERASE 36 IU/L (15-46); BLOOD UREA NITROGEN 12 mg/dl (7-20); CALCIUM 8.6 mg/dl (8.4-10.2); CARBON DIOXIDE 25 mmol/L (21-31); CHLORIDE 108 mmol/L (97-110); CREATININE 0.79 mg/dl (0.61-1.24); Estimated GFR > 60 mL/min (>60); GLUCOSE 64 mg/dl (70-220); POTASSIUM 3.7 mmol/L (3.5-5.1); SODIUM 142 mmol/L (135-144); TOTAL PROTEIN 7.3 g/dl (6.1-8.1)
[2019-05-04] MEDS ORDERED: ATORVASTATIN 80 MG TAB PO (21:00)
[2019-05-05] MEDS ORDERED: AMIODARONE 200 MG TAB PO (09:00)
== END 2019-05-04 18:24 | disposition home or self-care (01) ==
LOC: TEL 05-04 10:52 → E/R 17:30 → TEL 21:57
PROVIDERS: Family Medicine
DX: E11.649 Type 2 diabetes mellitus with hypoglycemia without coma (principal); K52.9 Noninfective gastroenteritis and colitis, unspecified; I25.10 Atherosclerotic heart disease of native coronary artery without angina pectoris; Z95.5 Presence of coronary angioplasty implant and graft; I10 Essential (primary) hypertension; Z79.84 Long term (current) use of oral hypoglycemic drugs; E78.5 Hyperlipidemia, unspecified; F41.9 Anxiety disorder, unspecified; I25.5 Ischemic cardiomyopathy; I48.0 Paroxysmal atrial fibrillation; Z79.01 Long term (current) use of anticoagulants
CPT/HCPCS: 36415; 76705; 80053; 82962; 83690; 85025; 93005; 99285-25; G0378